=== PATIENT | female | born 1990 | race Two or more races ===

== ENCOUNTER → 2017-12-06 | Emergency (ER) | payer OTHER ==
[~2017-12-06] VITALS: Ht 165.1 cm; Wt 91.6 kg
== END | disposition left against medical advice (07) ==
LOC: ER 21:51
DX: Z53.20 Procedure and treatment not carried out because of patient's decision for unspecified reasons (principal)

== ENCOUNTER 2019-11-02 18:48 | Emergency (ER) | payer OTHER ==
[~2019-11-02] VITALS: Ht 165.1 cm; Wt 92.5 kg
== END 2019-11-03 00:39 | disposition home or self-care (01) ==
LOC: ER 18:48
DX: O34.81 Maternal care for other abnormalities of pelvic organs, first trimester (principal); N83.292 Other ovarian cyst, left side; N83.291 Other ovarian cyst, right side

== ENCOUNTER 2019-11-10 21:26 | Emergency (ER) | payer OTHER ==
[~2019-11-10] VITALS: Ht 165.1 cm; Wt 92.5 kg
== END 2019-11-10 23:32 | disposition home or self-care (01) ==
LOC: ER 21:26
DX: O20.8 Other hemorrhage in early pregnancy (principal); Z34.81 Encounter for supervision of other normal pregnancy, first trimester